=== PATIENT | male | born 1995 | race Caucasian/White ===

== ENCOUNTER 2017-07-29 09:13 | Emergency (ER) | payer OTHER, MEDICAID ==
[~2017-07-29] VITALS: Ht 177.8 cm; Wt 59.9 kg
[2017-07-29 09:25] VITALS: Ht 177.8 cm; Wt 59.9 kg
[2017-07-29 10:54] VITALS: BP 102/71
== END 2017-07-29 10:54 | disposition home or self-care (01) ==
LOC: ED 09:13
DX: R11.10 Vomiting, unspecified (principal); R19.7 Diarrhea, unspecified; R10.9 Unspecified abdominal pain
CPT/HCPCS: J0780; J1885